=== PATIENT | male | born 1975 | race Caucasian/White ===

== ENCOUNTER → 2016-09-30 | Outpatient (CLI) | payer MEDICARE, OTHER ==
[2016-09-30 08:50] LABS: HEMOGLOBIN 15.1 gm/dl (14.0-17.5); RED BLOOD COUNT 4.86 M/UL (4.20-5.50); WHITE BLOOD COUNT 6.9 K/UL (4.5-11.0)
[2016-09-30 09:29] LABS: BUN/CREATININE RATIO 10 (0-10)
== END ==
LOC: LAB 08:00
PROVIDERS: Psychiatry & Neurology Neurology
DX: E78.4 Other hyperlipidemia (principal); R53.83 Other fatigue; F32.2 Major depressive disorder, single episode, severe without psychotic features; Z79.899 Other long term (current) drug therapy
CPT/HCPCS: 36415; 80053; 80061; 80307; 84443; 85025